=== PATIENT | female | born 1975 | race Hispanic/Latino ===

== ENCOUNTER 2017-05-12 12:53 | Emergency (ER) | payer SELFPAY ==
--- NOTE | 2017-05-12 13:56 | XRay Report ---
CHEST TWO VIEWS: 05/12/17 12:53:00 CLINICAL: Shortness of breath. COMPARISON: none FINDINGS: Normal heart and pulmonary vasculature. The lungs are normally expanded and clear. Degenerative changes in the spine. IMPRESSION: No acute cardiopulmonary process.
[2017-05-12 14:03] LABS: Basophils % (Auto) 0.6 % (0.0-1.8); Eosinophils % (Auto) 0.6 % (0.0-4.3); Hematocrit 41.3 % (30.3-42.9); Hemoglobin 13.7 gm/dl (10.1-14.3); Mean Corpuscular HGB Conc 33 % (30-34); Mean Corpuscular Hemoglobin 27 pg (28-32); Mean Corpuscular Volume 82 fl (79-97); Platelet Count 182 K/mm3 (140-440); Red Blood Count 5.05 M/mm3 (3.65-5.03); Red Cell Distribution Width 15.1 % (13.2-15.2); White Blood Count 9.6 K/mm3 (4.5-11.0)
--- NOTE | 2017-05-12 15:02 | Emergency Department Report ---
HPI - General Chief Complaint: Dyspnea/Respdistress Time Seen by Provider: 05/12/17 14:46 - HPI HPI: Room 26 The patient is a 41-year-old female presenting with a chief complaint shortness of breath. The patient states she's had intermittent left-sided chest pain for several months. The patient states for the past 2 weeks she has had intermittent shortness of breath comes on at rest. Patient describes her chest pain is sharp in nature and occasionally associated with diaphoresis. Patient denies pleurisy. Patient admits to a chronic cough for years. Patient has been smoking approximately one half packs of cigarettes daily since the age of 16. Patient states she's never had a stress test or cardiac catheterization. Patient denies nausea or vomiting with her chest pain Location: Lungs, chest Duration: [see above] Quality: Sharp Severity: Moderate Modifying factors: [see above] Context: [see above] Mode of transportation: [not driving] ED Past Medical Hx - Past Medical History Previous Medical History?: No Hx Psychiatric Treatment: Yes (anxiety) - Surgical History Past Surgical History?: No - Family History Family history: no significant (12.5 pack year history. Patient stopped smoking 3 days ago) - Social History Smoking Status: Current Every Day Smoker Substance Use Type: None ED Review of Systems ROS: Stated complaint: PALOMO Other details as noted in HPI Comment: All other systems reviewed and negative Constitutional: diaphoresis Eyes: denies: eye pain, eye discharge, vision change ENT: denies: ear pain, throat pain Respiratory: cough, shortness of breath Cardiovascular: chest pain Endocrine: no symptoms reported Gastrointestinal: denies: abdominal pain, nausea, diarrhea Genitourinary: denies: urgency, dysuria, discharge Musculoskeletal: denies: back pain, joint swelling, arthralgia Skin: denies: rash, lesions Neurological: denies: headache, weakness, paresthesias Psychiatric: denies: anxiety, depression Hematological/Lymphatic: denies: easy bleeding, easy bruising Physical Exam - Physical Exam Vital Signs: Vital Signs 05/12/17 13:06 Temperature 98.4 F Pulse Rate 79 Respiratory 20 Rate Blood Pressure 128/82 O2 Sat by Pulse 98 Oximetry Physical Exam: GENERAL: The patient is well-developed well-nourished female lying on stretcher not appearing to be in acute distress. [] HEENT: Normocephalic. Atraumatic. Extraocular motions are intact. Patient has moist mucous membranes. NECK: Supple. Trachea midline CHEST/LUNGS: Clear to auscultation. There is no respiratory distress noted. HEART/CARDIOVASCULAR: Regular. There is no tachycardia. There is no gallop rub or murmur. ABDOMEN: Abdomen is soft, nontender. Patient has normal bowel sounds. There is no abdominal distention. SKIN: There is no rash. There is no diaphoresis. NEURO: The patient is awake, alert, and oriented. The patient is cooperative. The patient has normal speech MUSCULOSKELETAL: There is no evidence of acute injury. ED Course Vital Signs 05/12/17 13:06 Temperature 98.4 F Pulse Rate 79 Respiratory 20 Rate Blood Pressure 128/82 O2 Sat by Pulse 98 Oximetry ED Medical Decision Making - Lab Data Result diagrams: 05/12/17 13:43 05/12/17 14:36 Laboratory Tests 05/12/17 05/12/17 13:43 14:36 WBC 9.6 RBC 5.05 H Hgb 13.7 Hct 41.3 MCV 82 MCH 27 L MCHC 33 RDW 15.1 Plt Count 182 Lymph % (Auto) 19.6 [place] % (Auto) 7.0 Eos % (Auto) 0.6 Baso % (Auto) 0.6 Lymph # 1.9 [place] # 0.7 Eos # 0.1 Baso # 0.1 Seg Neutrophils % 72.2 H Seg Neutrophils # 6.9 Sodium 138 Potassium 4.0 Chloride 100.8 Carbon Dioxide 23 Anion Gap 18 BUN 5 L Creatinine 0.6 L Estimated GFR > 60 BUN/Creatinine Ratio 8.33 Glucose 90 Calcium 8.6 Troponin T < 0.010 - EKG Data -: EKG Interpreted by Me EKG shows normal: sinus rhythm Rate: normal - EKG Data When compared to previous EKG there are: previous EKG unavailable Interpretation: other (no ischemic changes seen) - Radiology Data Radiology results: image reviewed (chest x-ray) interpreted by me: Chest x-ray-no focal infiltrates, no pneumothorax - Differential Diagnosis COPD, ACS, GERD, pericarditis, pneumonia Critical care attestation.: If time is entered above; I have spent that time in minutes in the direct care of this critically ill patient, excluding procedure time. ED Disposition Clinical Impression: Shortness of breath, Chest pain Disposition: OP ADMIT IP TO THIS HOSP Is pt being admited?: Yes Does the pt Need Aspirin: Yes Condition: Stable Instructions: Chest Pain (ED) Referrals: PRIMARY CARE,MD [Primary Care Provider] - 3-5 Days Time of Disposition: 15:20 (hospitalist paged)
[2017-05-12 15:06] LABS: Anion Gap 18 mmol/L; BUN/Creatinine Ratio 8.33; Blood Urea Nitrogen 5 mg/dL (7-17); Calcium 8.6 mg/dL (8.4-10.2); Carbon Dioxide 23 mmol/L (22-30); Chloride 100.8 mmol/L (98-107); Glucose 90 mg/dL (65-100); Sodium 138 mmol/L (137-145)
[2017-05-12] MEDS ORDERED: ASPIRIN PO ONE (15:20)
--- NOTE | 2017-05-12 16:22 | History and Physical Report ---
History of Present Illness Chief complaint: i was short of breath History of present illness: 41 YO Female with Nicotine Dependence, Anxiety, MO, presents to ED for evaluation of shortness of breath and atypical chest pain. Pt seen and evaluated in ED. Pt symptoms resolved with nebulizer therapy and supportive care. Pt counseled regarding smoking cesstion. Pt discharged home and instructed to f/u pcp 1wk for further care and evaluation. Past History Past Medical History: other (MO, Anxiety, ) Past Surgical History: No surgical history, Other (reviewed) Social history: , lives with family, smoking. denies: alcohol abuse, prescription drug abuse, IV drug use Family history: hypertension Medications and Allergies Allergies Allergy/AdvReac Type Severity Reaction Status Date / Time mushroom Allergy Unknown Verified 05/12/17 13:14 peanut Allergy Unknown Verified 05/12/17 13:14 Home Medications Medication Instructions Recorded Confirmed Last Taken Type ALBUTEROL NEB's [Proventil 0.083% 2.5 mg IH TID PRN #1 box 05/12/17 Unknown Rx NEBS] Azithromycin [Zithromax TAB] 250 mg PO QDAY #6 tablet 05/12/17 Unknown Rx Ipratropium [Atrovent NEB] 0.5 mg IH Q8HRT #1 box 05/12/17 Unknown Rx Nebulizer/Compressor [Devilbiss 1 each MC PRN #1 each 05/12/17 Unknown Rx Pulmoneb Lt Comp-Neb] Prednisone [predniSONE 5 mg (6-Day 5 mg PO .TAPER #1 tab.ds.pk 05/12/17 Unknown Rx Pack, 21 Tabs)] Review of Systems All systems: negative Constitutional: no weight loss Ears, nose, mouth and throat: no ear pain Cardiovascular: no syncope Gastrointestinal: no nausea, no vomiting Genitourinary Female: no flank pain Rectal: no pain Musculoskeletal: no neck stiffness Integumentary: no rash Neurological: no head injury Psychiatric: no memory loss Endocrine: no cold intolerance, no heat intolerance Hematologic/Lymphatic: no easy bruising, no easy bleeding Allergic/Immunologic: no urticaria Exam - Constitutional Vitals: Temp Pulse Resp BP Pulse Ox 98.4 F 79 20 128/82 98 05/12/17 13:06 05/12/17 13:06 05/12/17 13:06 05/12/17 13:06 05/12/17 13:06 General appearance: Present: obese - EENT Eyes: Present: PERRL ENT: hearing intact, clear oral mucosa - Neck Neck: Present: supple, normal ROM - Respiratory Respiratory effort: normal Respiratory: bilateral: CTA - Cardiovascular Heart Sounds: Present: S1 & S2. Absent: rub, click - Extremities Extremities: pulses symmetrical, No edema Peripheral Pulses: within normal limits - Abdominal General gastrointestinal: Present: soft, non-tender, non-distended, normal bowel sounds Female genitourinary: Present: normal - Integumentary Integumentary: Present: clear, warm, dry - Musculoskeletal Musculoskeletal: gait normal, strength equal bilaterally - Psychiatric Psychiatric: appropriate mood/affect, intact judgment & insight - Neurologic Neurologic: CNII-XII intact, moves all extremities Results - Labs CBC & Chem 7: 05/12/17 13:43 05/12/17 14:36 Labs: Abnormal lab results 05/12/17 05/12/17 Range/Units 13:43 14:36 RBC 5.05 H (3.65-5.03) M/mm3 MCH 27 L (28-32) pg Seg Neutrophils % 72.2 H (40.0-70.0) % BUN 5 L (7-17) mg/dL Creatinine 0.6 L (0.7-1.2) mg/dL Assessment and Plan - Patient Problems (1) Atypical chest pain Status: Acute Plan to address problem: Cardiac enzymes, ekg, telemetry, D dimer unramarkable, Pleuritic chest pain secondary to bronchitis (2) Bronchitis Status: Acute Plan to address problem: IV steroids, nebulizer therapy, compressor, (3) Morbid obesity Status: Acute Plan to address problem: increased physical activity, balanced diet
[2017-05-12] MEDS ORDERED: BABY ASPIRIN ONE (16:54)
[2017-05-12 18:54] VITALS: BP 117/76
== END 2017-05-12 18:53 | disposition admitted as inpatient to this hospital (09) ==
LOC: ED 12:53
DX: R06.02 Shortness of breath (principal); R07.9 Chest pain, unspecified; F41.9 Anxiety disorder, unspecified; F17.200 Nicotine dependence, unspecified, uncomplicated
CPT/HCPCS: 36415; 71020; 80048; 83880; 84484; 85025; 85379; 93005; 93010

== ENCOUNTER 2017-05-20 23:14 | Emergency (ER) | payer OTHER ==
[2017-05-20 23:33] VITALS: BP 129/79
[2017-05-20 23:54] LABS: Basophils % (Auto) 0.7 % (0.0-1.8); Eosinophils % (Auto) 0.5 % (0.0-4.3); Hematocrit 41.6 % (30.3-42.9); Hemoglobin 13.2 gm/dl (10.1-14.3); Mean Corpuscular HGB Conc 32 % (30-34); Mean Corpuscular Hemoglobin 26 pg (28-32); Mean Corpuscular Volume 82 fl (79-97); Platelet Count 219 K/mm3 (140-440); Red Blood Count 5.07 M/mm3 (3.65-5.03); Red Cell Distribution Width 15.1 % (13.2-15.2); White Blood Count 13.3 K/mm3 (4.5-11.0)
[2017-05-21 00:16] LABS: Anion Gap 21 mmol/L; BUN/Creatinine Ratio 12.85; Blood Urea Nitrogen 9 mg/dL (7-17); Calcium 9.1 mg/dL (8.4-10.2); Carbon Dioxide 23 mmol/L (22-30); Chloride 98.2 mmol/L (98-107); Glucose 120 mg/dL (65-100); Potassium 3.8 mmol/L (3.6-5.0); Sodium 138 mmol/L (137-145)
--- NOTE | 2017-05-21 00:44 | XRay Report ---
FINAL REPORT EXAM: XR CHEST ROUTINE 2V HISTORY: Shortness of breath COMPARISON: None available. FINDINGS:: Frontal and lateral views of the chest obtained. Heart borderline enlarged. No focal consolidation or effusion. No pneumothorax. Visualized bony thorax is grossly intact. IMPRESSION:: Heart borderline enlarged. No focal consolidation.
== END 2017-05-21 03:25 | disposition left against medical advice (07) ==
LOC: ED 23:14
DX: R07.9 Chest pain, unspecified (principal); R06.02 Shortness of breath; F41.9 Anxiety disorder, unspecified; Z91.018 Allergy to other foods; Z87.891 Personal history of nicotine dependence; Z53.21 Procedure and treatment not carried out due to patient leaving prior to being seen by health care provider
CPT/HCPCS: 36415; 71020; 80048; 84484; 84703; 85025; 93005; 93010